=== PATIENT | female | born 1960 | race Caucasian/White ===

== ENCOUNTER → 2019-07-18 | Outpatient (CLI) | payer OTHER ==
[~2019-07-18] MED LIST: HYOSCYAMIN125 MCG/5 PO; LEVOXYL25 MCG; LISINOPRIL; MULTIVITAMINS; VICODIN 5-5001 EACH PO; VITAMIN D1000 UNI1; XANAX 0.25 MG0.25 MG PO
== END ==
LOC: BC 14:31
DX: Z12.31 Encounter for screening mammogram for malignant neoplasm of breast (principal)

== ENCOUNTER 2019-07-24 19:48 | Emergency (ER) | payer OTHER ==
[~2019-07-24] VITALS: Ht 170.2 cm; Wt 74.8 kg
[2019-07-24 20:09] LABS: URINE BILIRUBIN NEGATIVE (Negative); URINE BLOOD TRACE (Negative); URINE CLARITY CLEAR; URINE COLOR YELLOW; URINE GLUCOSE-RANDOM* NEGATIVE (Negative); URINE KETONES NEGATIVE (Negative); URINE LEUKOCYTES-REFLEX NEGATIVE (Negative); URINE NITRITE-REFLEX NEGATIVE (Negative); URINE PROTEIN (DIPSTICK) NEGATIVE (Negative); URINE SPECIFIC GRAVITY 1.015 (1.005-1.035); URINE UROBILINOGEN 0.2 E.U./dl (0.2-1.0)
[2019-07-24 20:37] LABS: ABSOLUTE NEUTROPHILS 6.7 thou/uL (1.4-8.2); BASOPHILS 0.9 % (0.0-2.0); EOSINOPHILS 0.7 % (0.0-3.0); HEMATOCRIT 38.2 % (37.0-47.0); HEMOGLOBIN 12.8 gm/dL (12.0-15.0); LYMPHOCYTES 20.9 % (24.0-44.0); MCH 30.7 pg (26.0-34.0); MCHC 33.5 g/dL (28.0-37.0); MCV 91.9 fL (80.0-100.0); MONOCYTES 7.4 % (1.0-8.0); PLATELET COUNT 384 thou/uL (150-400); POLYS 70.1 % (36.0-66.0); RBC 4.15 mil/uL (4.20-5.00); RDW 13.6 % (10.5-14.5); WBC 9.5 thou/uL (4.0-11.0)
[2019-07-24 20:41] LABS: CALCIUM 9.3 mg/dL (8.5-10.1); CREATININE 0.9 mg/dL (0.6-1.0); POTASSIUM 3.6 mmol/L (3.5-5.1)
[2019-07-24 20:47] LABS: TOTAL BILIRUBIN 0.3 mg/dL (<0.1-1.0); TOTAL PROTEIN 7.1 g/dL (6.4-8.2)
[2019-07-24] MEDS ORDERED: NORCO 5-325 TA1 EAC1 PO (21:59)
[2019-07-24] MEDS ORDERED: CIPROFLOXACIN500 M1 PO (21:59)
[2019-07-24] MEDS ORDERED: FLAGYL500 M1 PO (21:59)
[2019-07-24] MEDS ORDERED: ZOFRAN ODT4 MG PO (21:59)
[2019-07-24 22:41] VITALS: BP 166/83
== END 2019-07-24 22:42 | disposition home or self-care (01) ==
LOC: ER 19:48
PROVIDERS: Emergency Medicine
DX: K52.9 Noninfective gastroenteritis and colitis, unspecified (principal); I10 Essential (primary) hypertension; Z85.038 Personal history of other malignant neoplasm of large intestine; Z90.49 Acquired absence of other specified parts of digestive tract; Z90.89 Acquired absence of other organs; Z88.0 Allergy status to penicillin

== ENCOUNTER 2021-06-11 10:16 | Emergency (ER) | payer OTHER ==
[~2021-06-11] VITALS: Ht 170.2 cm; Wt 74.8 kg
[~2021-06-11 10:16] MED LIST changes: +CIPROFLOXACIN500 M1 PO; +FLAGYL500 M1 PO; +NORCO 5-325 TA1 EAC1 PO; +ZOFRAN ODT4 MG PO
[2021-06-11 10:51] LABS: ABSOLUTE NEUTROPHILS 6.7 thou/uL (1.4-8.2); BASOPHILS 0.9 % (0.0-2.0); EOSINOPHILS 2.3 % (0.0-3.0); HEMATOCRIT 38.1 % (37.0-47.0); HEMOGLOBIN 12.5 gm/dL (12.0-15.0); LYMPHOCYTES 18.7 % (24.0-44.0); MCH 29.8 pg (26.0-34.0); MCHC 32.8 g/dL (28.0-37.0); MCV 90.7 fL (80.0-100.0); MONOCYTES 7.2 % (1.0-8.0); PLATELET COUNT 418 thou/uL (150-400); POLYS 70.9 % (36.0-66.0); RDW 13.5 % (10.5-14.5); WBC 9.5 thou/uL (4.0-11.0)
[2021-06-11 11:03] LABS: CALCIUM 8.8 mg/dL (8.5-10.1); CREATININE 1.1 mg/dL (0.6-1.0); POTASSIUM 3.7 mmol/L (3.5-5.1)
[2021-06-11 11:06] LABS: ALBUMIN 3.7 g/dL (3.4-5.0); TOTAL BILIRUBIN 0.4 mg/dL (0.2-1.0); TOTAL PROTEIN 6.9 g/dL (6.4-8.2)
[2021-06-11 12:26] LABS: URINE BILIRUBIN NEGATIVE (Negative); URINE BLOOD NEGATIVE (Negative); URINE CLARITY CLEAR; URINE COLOR YELLOW; URINE GLUCOSE-RANDOM* NEGATIVE (Negative); URINE KETONES TRACE (Negative); URINE LEUKOCYTES-REFLEX NEGATIVE (Negative); URINE NITRITE-REFLEX NEGATIVE (Negative); URINE PROTEIN (DIPSTICK) NEGATIVE (Negative); URINE SPECIFIC GRAVITY 1.015 (1.005-1.035); URINE UROBILINOGEN 0.2 E.U./dl (0.2-1.0)
[2021-06-11] MEDS ORDERED: ATIVAN0.5 M1 PO (14:05)
[2021-06-11] MEDS ORDERED: LEVOFLOXACIN500 MG PO (14:05)
[2021-06-11] MEDS ORDERED: ONDANSETRON HCL4 M2 PO (14:05)
[2021-06-11] MEDS ORDERED: METRONIDAZOLE500 M4 PO (14:05)
[2021-06-11 14:28] VITALS: BP 104/77
== END 2021-06-11 14:27 | disposition home or self-care (01) ==
LOC: ER 10:16
PROVIDERS: Emergency Medicine
DX: K52.9 Noninfective gastroenteritis and colitis, unspecified (principal); I10 Essential (primary) hypertension; E89.0 Postprocedural hypothyroidism; Z90.89 Acquired absence of other organs; Z90.49 Acquired absence of other specified parts of digestive tract; Z85.038 Personal history of other malignant neoplasm of large intestine; Z79.1 Long term (current) use of non-steroidal anti-inflammatories (NSAID); Z79.891 Long term (current) use of opiate analgesic; Z79.899 Other long term (current) drug therapy; Z88.0 Allergy status to penicillin